=== PATIENT | male | born 1975 | race African-American/Black ===

== ENCOUNTER 2018-10-06 16:51 | Emergency (ER) | payer MEDICAID ==
[~2018-10-06] VITALS: Ht 175.3 cm; Wt 77.1 kg
[2018-10-06 16:59] VITALS: Ht 175.3 cm; Wt 77.1 kg
[2018-10-06 17:34] LABS: BASOPHIL % 0.4 % (0-2); PLATELET COUNT 204 x10^3mcL (130-400)
[2018-10-06 17:45] LABS: CARBON DIOXIDE 27.7 mmol/L (21-32); CHLORIDE SERUM 104 mmol/L (98-107); CREATININE SERUM 1.3 mg/dL (0.7-1.3); GFR1 > 60 mL/min; GLUCOSE SERUM 100 mg/dL (74-106); POTASSIUM SERUM 4.1 mmol/L (3.5-5.1); SODIUM SERUM 141 mmol/L (136-145)
[2018-10-06 17:50] LABS: ALBUMIN 4.1 g/dL (3.4-5.0); ALKALINE PHOSPHATASE 68 U/L (46-116); ALT/SGPT 21 U/L (16-63); AST/SGOT 30 U/L (15-37); BILIRUBIN TOTAL 0.85 mg/dL (0.20-1.00)
[2018-10-06 17:52] LABS: RED CELL DISTRIBUTION WIDTH 14.8 % (11.5-14.5); TOTAL PROTEIN, SERUM 8.3 g/dL (6.4-8.2)
[2018-10-06 17:57] LABS: AMPHETAMINE QUAL UR NONE DETECTED (See below)
[2018-10-06 20:12] VITALS: BP 141/89
== END 2018-10-06 20:12 | disposition home or self-care (01) ==
LOC: ED 16:51
PROVIDERS: Emergency Medicine
DX: F19.10 Other psychoactive substance abuse, uncomplicated (principal); R41.82 Altered mental status, unspecified
CPT/HCPCS: 36415; G0480

== ENCOUNTER 2018-10-06 21:19 | Emergency (ER) | payer MEDICAID | END 2018-10-06 23:41 | disposition left against medical advice (07) | LOC: ED 21:19 ==

== ENCOUNTER 2018-10-11 20:30 | Emergency (ER) | payer MEDICAID ==
[~2018-10-11] VITALS: Ht 175.3 cm; Wt 90.7 kg
[2018-10-11 20:45] VITALS: Ht 175.3 cm; Wt 90.7 kg
[2018-10-11 21:12] LABS: BASOPHIL % 0.4 % (0-2); PLATELET COUNT 184 x10^3mcL (130-400); RED CELL DISTRIBUTION WIDTH 14.5 % (11.5-14.5)
[2018-10-11 21:18] LABS: CALCIUM 8.8 mg/dL (8.5-10.1); CARBON DIOXIDE 24.9 mmol/L (21-32); CHLORIDE SERUM 105 mmol/L (98-107); CREATININE SERUM 1.3 mg/dL (0.7-1.3); GFR1 > 60 mL/min; GLUCOSE SERUM 95 mg/dL (74-106); POTASSIUM SERUM 3.8 mmol/L (3.5-5.1); SODIUM SERUM 142 mmol/L (136-145)
[2018-10-11 21:23] LABS: ALBUMIN 3.8 g/dL (3.4-5.0); ALKALINE PHOSPHATASE 60 U/L (46-116); ALT/SGPT 23 U/L (16-63); AST/SGOT 27 U/L (15-37); BILIRUBIN TOTAL 0.6 mg/dL (0.20-1.00); TOTAL PROTEIN, SERUM 7.6 g/dL (6.4-8.2)
[2018-10-12 02:22] LABS: AMPHETAMINE QUAL UR NONE DETECTED (See below)
[2018-10-12 07:30] VITALS: BP 150/97
== END 2018-10-12 08:16 | disposition home or self-care (01) ==
LOC: ED 20:30
PROVIDERS: Emergency Medicine
DX: F16.129 Hallucinogen abuse with intoxication, unspecified (principal)
CPT/HCPCS: G0480; J2060; J7030; Q0092